=== PATIENT | male | born 1990 | race Caucasian/White ===

== ENCOUNTER 2017-03-23 15:46 | Emergency (ER) | payer OTHER ==
[~2017-03-23] VITALS: Ht 188 cm; Wt 66.8 kg
[~2017-03-23 15:46] MED LIST: CLONIDINE HCL0.3 MG PO; CLONIDINE PO; COMPAZINE10 MG PO; CONCERTA PO; CONCERTA36 MG PO; HYDROXYZINE HCL25 MG PO; HYDROXYZINE PO; LEVOFLOXACIN500 MG PO; METHYLPHENIDATE36 MG PO; MOBIC15 MG PO; ZOFRAN8 MG PO; ZOLOFT PO
[2017-03-23 17:23] VITALS: BP 106/79
== END 2017-03-23 17:29 | disposition home or self-care (01) ==
LOC: EME 15:46
PROVIDERS: Physician Assistant Medical
DX: B34.9 Viral infection, unspecified (principal); F90.9 Attention-deficit hyperactivity disorder, unspecified type; G80.9 Cerebral palsy, unspecified; F70 Mild intellectual disabilities; Z87.891 Personal history of nicotine dependence
CPT/HCPCS: 87502; 99281; 99284

== ENCOUNTER 2017-08-05 22:06 | Emergency (ER) | payer OTHER ==
[~2017-08-05] VITALS: Ht 188 cm; Wt 69.8 kg
[2017-08-06 01:10] VITALS: BP 135/80
== END 2017-08-06 01:10 | disposition home or self-care (01) ==
LOC: EME 22:06
PROC: 0HQGXZZ Repair Left Hand Skin, External Approach (ICD-10-PCS; principal; 2017-08-05)
DX: S61.211A Laceration without foreign body of left index finger without damage to nail, initial encounter (principal); W26.0XXA Contact with knife, initial encounter; Y93.G1 Activity, food preparation and clean up; Y99.0 Civilian activity done for income or pay; Z87.891 Personal history of nicotine dependence
CPT/HCPCS: 73140; 99281; 99284; S0020